=== PATIENT | female | born 1970 | race Caucasian/White ===

== ENCOUNTER 2020-07-07 14:01 | Emergency (ER) | payer OTHER ==
[2020-07-07] MEDS ORDERED: PERCOCET 7.5-31 EACH PO (15:04)
== END 2020-07-07 15:45 | disposition home or self-care (01) ==
LOC: ER1 14:01
DX: S82.851A Displaced trimalleolar fracture of right lower leg, initial encounter for closed fracture (principal); Z88.5 Allergy status to narcotic agent; X50.9XXA Other and unspecified overexertion or strenuous movements or postures, initial encounter; Y92.009 Unspecified place in unspecified non-institutional (private) residence as the place of occurrence of the external cause; Z23 Encounter for immunization
CPT/HCPCS: 29505; 73590; 73610; 90471; 90715; 93005; 96374; 96376; 99284; J1170

== ENCOUNTER 2021-05-10 05:46 | Emergency (ER) | payer OTHER ==
[~2021-05-10 05:46] MED LIST: PERCOCET 7.5-31 EACH PO
[2021-05-10 06:17] LABS: HEMOGLOBIN 13.6 gm/dl (12.3-15.3); RED BLOOD COUNT 4.61 M/UL (4.00-5.10); WHITE BLOOD COUNT 9.9 K/UL (4.5-11.0)
[2021-05-10 06:26] LABS: BUN/CREATININE RATIO 19 (0-10)
[2021-05-10] MEDS ORDERED: FLOMAX 0.4 MG0.4 MG PO (09:15)
[2021-05-10] MEDS ORDERED: TORADOL 10 MG T10 MG PO (09:15)
[2021-05-10] MEDS ORDERED: ZOFRAN ODT 4 MG4 MG PO (10:08)
[2021-05-10] MEDS ORDERED: PERCOCET 5-3251 EACH PO (10:08)
== END 2021-05-10 10:15 | disposition home or self-care (01) ==
LOC: ER1 05:46
PROVIDERS: Physician Assistant
DX: N13.2 Hydronephrosis with renal and ureteral calculous obstruction (principal); Z98.84 Bariatric surgery status; Z88.5 Allergy status to narcotic agent
CPT/HCPCS: 80053; 81001; 82150; 83690; 85025; 87086; 96372; 96374; 96375; 99284; J1170; J1885; J2405; Q9967